=== PATIENT | female | born 1990 | race Caucasian/White ===

== ENCOUNTER 2019-10-05 12:15 | Inpatient (IN) ==
[2019-10-05] MEDS ORDERED: METHOCARBAMOL 750 MG TABLET PO PRN (15:46)
[2019-10-05] MEDS ORDERED: DICYCLOMINE 10 MG CAPSULE PO PRN (15:46)
[2019-10-05] MEDS ORDERED: HydrOXYzine PAMOATE 25 MG CAPSULE PO PRN (15:46)
[2019-10-05] MEDS ORDERED: ONDANSETRON 4 MG/2 ML VIAL IV PRN (15:50)
[2019-10-05] MEDS ORDERED: GABAPENTIN 300 MG CAPSULE PO SCH (16:00)
[2019-10-05 16:52] LABS: Apearance,Urine CLEAR (Clear); Bacteria,Urine Occasional /HPF (Few); Bilirubin,Urine Negative (Negative); Blood, Urine Negative (Negative); Glucose,Urine (UA) Negative (Negative); Ketones,Urine Negative (Negative); Mucus,Urine Occasional /LPF (Occasional); Nitrite,Urine Negative (Negative); Protein,Urine Negative; RBC,Urine <1 /HPF (0-4); Squamous Epithelial Cell,Urine Occasional /HPF (0-10); Urine Color Straw (Yellow); Urine Specific Gravity 1.008 (1.001-1.035); Urine Urobilinogen < 2.0 EU/DL (0.2-1.0); WBC,Urine <1 /HPF (0-6)
[2019-10-05] MEDS ORDERED: THIAMINE INJ 100 MG, FOLIC ACID INJ 1 MG, MULTIVITAMIN INJ 10 ML in SODIUM CHLORIDE 0.9... IV ONE (17:00)
[2019-10-05 17:05] LABS: Barbiturates Screen,Urine Negative (Negative); Benzodiazepines Screen,Urine Positive (Negative); Cannabinoid Screen,Urine Negative (Negative); Opiate Screen,Urine Negative (Negative); Phencyclidine Screen,Urine Negative (Negative)
[2019-10-05] MEDS: PHENobarbital 30 MG TABLET PO SCH ×2 (17:11→20:50)
[2019-10-05] MEDS ORDERED: diphenhydrAMINE CAP 50 MG CAPSULE PO PRN (17:37)
[2019-10-05] MEDS: ZALEPLON 5 MG CAPSULE PO SCH (20:50)
[2019-10-06] MEDS: PHENobarbital 30 MG TABLET PO SCH ×6 (00:28→21:03)
[2019-10-06 05:49] LABS: Basophils # 0.1 10*3/uL (0.0-0.2); Basophils % 0.7 % (0.0-0.8); Eosinophils # 0.3 10*3/uL (0.0-0.87); Eosinophils % 3.5 % (0.00-10.9); Hematocrit 37.5 VOL% (35.7-47.0); Hemoglobin 12.2 GM/DL (12.0-16.0); Immature Granulocytes % 0.3 %; Immature Granulocytes Absolute 0.02 #; Lymphocytes # 2.6 10*3/uL (1.4-4.0); Lymphocytes % 35.2 % (21.3-54.2); Mean Corpuscular HGB Conc 32.5 GM/DL (32-36); Mean Corpuscular Volume 88.9 FL (87-102); Mean Platelet Volume 10.1 FL (9.6-12.0); Monocytes % 9.7 % (1.7-12.7); Neutrophils % 50.6 % (38.7-73.9); Platelet Count 242 T/CUMM (130-400); Red Blood Count 4.22 MC/CUMM (3.8-5.5); Red Cell Distribution Width 12.4 % (9.3-17.3); White Blood Count 7.4 T/CUMM (4-12)
[2019-10-06 06:05] LABS: Albumin 3.4 G/DL (3.4-5.0); Bilirubin,Total 0.7 MG/DL (0.2-1.0); Calcium 8.2 MG/DL (8.5-10.1); Osmolality,Calculated 277.4 MOS/KG (273-304); Total Protein 6.3 G/DL (6.4-8.3)
[2019-10-06] MEDS ORDERED: DILTIAZEM 90 MG TABLET PO SCH (09:00)
[2019-10-06] MEDS: PANTOPRAZOLE 40 MG TABLET PO SCH (10:10)
[2019-10-06] MEDS ORDERED: ACETAMINOPHEN 325 MG TABLET PO PRN (17:08)
[2019-10-06] MEDS: DILTIAZEM 90 MG TABLET PO SCH (21:03)
[2019-10-06] MEDS: ZALEPLON 5 MG CAPSULE PO SCH (23:17)
[2019-10-07] MEDS: PHENobarbital 30 MG TABLET PO SCH ×4 (03:17→21:01)
[2019-10-07 06:27] LABS: Basophils # 0.1 10*3/uL (0.0-0.2); Basophils % 0.9 % (0.0-0.8); Eosinophils # 0.3 10*3/uL (0.0-0.87); Eosinophils % 2.8 % (0.00-10.9); Hematocrit 39.7 VOL% (35.7-47.0); Immature Granulocytes % 0.3 %; Immature Granulocytes Absolute 0.03 #; Lymphocytes # 3.2 10*3/uL (1.4-4.0); Lymphocytes % 36.6 % (21.3-54.2); Mean Corpuscular HGB Conc 32.7 GM/DL (32-36); Mean Corpuscular Volume 89.4 FL (87-102); Monocytes % 8.3 % (1.7-12.7); Neutrophils % 51.1 % (38.7-73.9); Platelet Count 265 T/CUMM (130-400); Red Blood Count 4.44 MC/CUMM (3.8-5.5); Red Cell Distribution Width 12.4 % (9.3-17.3); White Blood Count 8.8 T/CUMM (4-12)
[2019-10-07 07:11] LABS: Albumin 3.6 G/DL (3.4-5.0); Bilirubin,Total 0.6 MG/DL (0.2-1.0); Calcium 8.5 MG/DL (8.5-10.1); Osmolality,Calculated 277.4 MOS/KG (273-304); Total Protein 6.7 G/DL (6.4-8.3)
[2019-10-07] MEDS: PANTOPRAZOLE 40 MG TABLET PO SCH (09:32)
[2019-10-07] MEDS: TOPIRAMATE 100 MG PO SCH (09:32)
[2019-10-07] MEDS: DILTIAZEM 90 MG TABLET PO SCH (11:46)
[2019-10-07] MEDS ORDERED: DILTIAZEM 90 MG TABLET PO SCH (21:00)
[2019-10-07] MEDS: ZALEPLON 5 MG CAPSULE PO SCH (22:36)
[2019-10-08] MEDS: PHENobarbital 30 MG TABLET PO SCH ×3 (03:40→15:07)
[2019-10-08 04:55] LABS: Basophils # 0.1 10*3/uL (0.0-0.2); Basophils % 1.2 % (0.0-0.8); Eosinophils # 0.3 10*3/uL (0.0-0.87); Eosinophils % 3.4 % (0.00-10.9); Hematocrit 40.6 VOL% (35.7-47.0); Hemoglobin 13.2 GM/DL (12.0-16.0); Immature Granulocytes % 0.4 %; Immature Granulocytes Absolute 0.04 #; Lymphocytes # 3.8 10*3/uL (1.4-4.0); Mean Corpuscular HGB Conc 32.5 GM/DL (32-36); Mean Corpuscular Volume 88.8 FL (87-102); Mean Platelet Volume 9.8 FL (9.6-12.0); Monocytes % 7.6 % (1.7-12.7); Neutrophils % 49.4 % (38.7-73.9); Platelet Count 272 T/CUMM (130-400); Red Blood Count 4.57 MC/CUMM (3.8-5.5); Red Cell Distribution Width 12.4 % (9.3-17.3); White Blood Count 9.9 T/CUMM (4-12)
[2019-10-08 05:14] LABS: Albumin 3.5 G/DL (3.4-5.0); Bilirubin,Total 0.5 MG/DL (0.2-1.0); Calcium 8.7 MG/DL (8.5-10.1); Osmolality,Calculated 277.5 MOS/KG (273-304); Total Protein 6.6 G/DL (6.4-8.3)
[2019-10-08] MEDS ORDERED: TOPIRAMATE 100 MG TABLET ONE (08:24)
[2019-10-08] MEDS: TOPIRAMATE 100 MG PO SCH (08:59)
[2019-10-08] MEDS: PANTOPRAZOLE 40 MG TABLET PO SCH (08:59)
[2019-10-08 15:31] VITALS: BP 139/80
== END 2019-10-08 19:25 | disposition home or self-care (01) | DRG 897 ==
LOC: N.4E 12:41 → SUATTDRO 12:41
PROVIDERS: ADMIT Emergency Medicine; ATTEND Hospitalist